=== PATIENT | female | born 1980 | race Caucasian/White ===

== ENCOUNTER 2020-03-31 19:03 | Inpatient (IN) | payer OTHER, SELFPAY ==
[2020-03-31] VITALS (8 sets, daily range): BP systolic 134–156; BP diastolic 82–99; PULSE 20–134; RESP 18–24; TEMP 37.1–38.4; O2SAT 95–99; BMI 51.5
--- NOTE | 2020-03-31 19:31 | US_ITS ---
WS: [id number] ABDOMINAL ULTRASOUND LIMITED REASON FOR VISIT: upper abdominal pain TECHNIQUE: Grayscale and Doppler ultrasound examination of the abdomen. FINDINGS: Pancreas: Poorly visualized Abdominal aorta and IVC: Normal Liver: Liver measures 12.3 cm in length. Infiltration of the liver is seen. Paraspinal pedal circulat ion normal Gallbladder: Gallbladder wall thickness measures 0.2 mm. No stones. Common bile duct measures 0.74 cm . Right kidney: Right kidney measures 11.7 cm x 5.8 cm x 5.7 cm. No hydronephrosis no stones. US/US gall bladder [id number] IMPRESSION: Fatty infiltration of the liver.
--- NOTE | 2020-03-31 19:32 | XR_ITS ---
WS: [id number] XR chest 1V portable [id number] REASON FOR EXAM: chest pain FINDINGS: The cardiac silhouette is not enlarged. The lung hall are well aerated. No pneumonia, pleural effusion, pulmonary edema, are pneumothorax. The overall appearance the chest is unchanged since March 20, 2019. Hilum and apices are normal. No osseous abnormalities. XR/XR chest 1V portable [id number] IMPRESSION: Negative chest for active pathology.
--- NOTE | 2020-03-31 19:33 | ED_ITS ---
HPI - Abdominal Pain General: Chief Complaint: Fever Stated Complaint: fever, yellow stool Time Seen by Provider: 03/31/20 19:17 Source: patient Mode of arrival: ambulatory Limitations: no limitations History of Present Illness: HPI narrative: Patient is a very nice 40-year-old female with a history of non-Hodgkin's lymphoma (in remission over the past 9 years) here for complaints of generalized weakness/not feeling well, upper abdominal pain/chest pain, fevers, vomiting and diarrhea. She states she began feeling ill yesterday. Patient tells me she has had only a few episodes of nonbloody vomit. She has had approximately 6-7 yellow diarrhea stools. She reports pain mainly to her upper abdomen with radiation into her back and flanks. She states when she lies down she feels like pain that radiates up into her chest. She does not complain of any difficulty breathing or shortness of breath. She has no previous cardiac or pulmonary history. No lower extremity swelling, orthopnea, PND. Patient reports fevers as high as 101 at home. She has not noticed any yellowing to her skin or eyes. She did report some urinary urgency, hesitancy, and dysuria a few days ago but states none over the past 1-2 days. Other PMH significant for hypothyroidism and HTN. Pertinent past history: none Onset (ago): day(s) Pain Consistency: constant Radiation: back Migration to: no migration Exacerbating factors: nothing Relieving factors: nothing Associated Symptoms: Reports change in stool character, chills, diarrhea, fever(s), nausea and vomiting; Denies coffee ground emesis, dysuria, heartburn, hematochezia, hematemesis, fecal incontinence, melena and syncope Review of Systems General: Reports: 10 or more systems reviewed and unremarkable except in HPI and below Const: Reports: fever(s) and chills; Denies: body aches, change in appetite, change in weight, fatigue or malaise Eyes: Denies: change in vision or blurry vision ENMT: Denies: throat pain, enlarged tonsils or odynophagia Card: Reports: chest pain; Denies: palpitations, irregular heart rhythm, edema, swelling of feet/ankles, lightheadedness, syncope, pre-syncope, dyspnea on exertion, orthopnea, leg pain with exertion or acrocyanosis Resp: Denies: dyspnea, productive cough, non-productive cough, pain on in spiration, change in phlegm color, hemoptysis or chest congestion GI: Reports: abdominal pain, nausea, vomiting, diarrhea, change in stool character and white/light colored stool (yellow); Denies: hematemesis, coffee ground emesis, heartburn, fecal incontinence, pain on defecation, hematochezia, melena or steatorrhea : Denies: flank pain, difficulty voiding, dysuria, urinary frequency, urinary urgency or urinary hesitancy Musc: Denies: neck pain, back pain, extremity pain, extremity swelling or joint pain Skin/Breast: Denies: rash Neuro: Denies: headache(s), numbness in extremities, weakness in extremities, sensory changes or dizziness PFSH ED PFSH: Social History Smoking and tobacco status: never smoked Physical Exam Const: COMMON NORMALS: patient oriented x3, no limitations and alert NUTRITIONAL APPEARANCE: obese morbidly obese ORIENTATION/CONSCIOUSNESS: Yes oriented to person, Yes oriented to place and Yes oriented to time OTHER: looks like she doesn't feel well HENMT: COMMON NORMALS: normocephalic and atraumatic HEAD & SCALP: normal to inspection, normocephalic and atraumatic Eye: COMMON NORMALS: Equal, round and reactive pupils present, EOMs intact bilaterally, conjunctivae normal and no scleral icterus CONJUNCTIVA: Yes conjunctivae normal PUPIL: Yes Equal, round and reactive pupils present Neck/C-Spine: COMMON NORMALS: full ROM, no lymphadenopathy and no meningeal signs Chest: COMMONS NORMALS: normal inspection of the chest OTHER: mild tenderness with anterior palpation of chest Resp: COMMON NORMALS: normal respiratory effort and clear to auscultation bilaterally AUSCULTATION: clear to auscultation bilaterally Cardio: COMMON NORMALS: regular rhythm RATE: tachycardic RHYTHM: regular rhythm GI: COMMON NORMALS: Soft to palpation and no masses INSPECTION: Yes normal to inspection PALPATION: Yes Soft to palpation and Yes Tenderness to palpation present (GI) (throughout upper abdomen; suprapubic) OTHER: exam somewhat limited due to body habitus Back/Pelvis: COMMON NORMALS: no thoracic nor lumbar tenderness OTHER: mild tenderness just inferior to CVA bilaterally Extremity: COMMON NORMALS: normal to inspection, no clubbing, cyanosis or edema, no calf tenderness and no pedal edema Neuro: CARMITA COMA SCALE: document GCS findings Carmita coma scale eye opening: Spontaneous [place] coma scale verbal response: Orientated [place] coma scale motor response: Obey commands [place] coma scale total score: 15 COMMON NORMALS: patient oriented x3, moves all extremities, no focal motor deficits and no sensory deficits noted SENSORIUM/ORIENTATION: Yes alert, Yes oriented to person, Yes oriented to place and Yes oriented to time MENINGEAL SIGNS: Yes no meningeal signs Skin: COMMON NORMALS: no rashes or lesions noted GENERAL SKIN EXAM: no rashes or lesions noted Course Consultations: Consultation #1: Dr. Torres?will admit patient Vital Signs: Vital signs: Vital Signs Temperature 98.9 F 03/31/20 23:19 Pulse Rate 20 L 03/31/20 23:19 Respiratory Rate 20 H 03/31/20 23:19 Blood Pressure 134/82 03/31/20 23:19 Pulse Oximetry 98 03/31/20 23:19 MDM - Abdominal Pain MDM Narrative: Medical decision making narrative: Patient came in with a main complaint of upper abdominal pain with radiation into her back and chest. She did complain of some yellow stools. Patient was worked up for upper abdominal pains/chest pains including CBC, CMP, lipase, coags, EKG, CXR, trop. Her LFTs are normal. Normal lipase. EKG showing sinus tachycardia. Troponin negative. CXR is normal. Her gallbladder ultrasound is normal. On CT scan she does have findings to suggest bilateral upper urinary tract infections. Patient's UA confirms this infection with 3+ blood, positive nitrates 2+ leuks, 80-100 WBCs. She arrived to the ED tachycardic in the 130s and febrile at 101.2. She has very mild leukocytosis at 12.6. She will need to come into the hospital for IV antibiotics. She has been started on Rocephin here in the emergency department. I will speak to the hospitalist for admission. Lab Data: Labs: Lab Results 03/31/20 03/31/20 03/31/20 Range/Units 19:44 19:44 19:44 WBC 12.6 H (4.0-10.0) 10^3/ uL RBC 5.02 (4.1-5.3) 10^6/u L Hgb 13.3 (11.5-15.3) g/dL Hct 40.6 (37.0-47.0) % MCV 80.9 L (81-99) fL MCH 26.5 L (28.0-34.0) pg MCHC 32.8 (30.0-36.0) g/dL RDW 13.5 (12.1-15.1) % Plt Count 316 (130-400) 10^3/c mm MPV 9.4 (7.4-10.4) fL Neut % (Auto) 80.5 % Lymph % (Auto) 12.0 % Saline % (Auto) 5.4 % Eos % (Auto) 1.2 % Baso % (Auto) 0.4 % Neut # (Auto) 10.2 H (1.8-7.7) 10^3/u L Lymph # (Auto) 1.5 (0.8-4.8) 10^3/u L Saline # (Auto) 0.7 (0.2-0.9) 10^3/u L Eos # (Auto) 0.2 (0.0-0.8) 10^3/u L Baso # (Auto) 0.1 (0.0-0.1) 10^3/u L Nucleated RBC % (a uto) 0 % Nucleated RBCs # 0.0 /100WBC PT (10.5-13.3) SECO NDS INR (0.8-1.2) APTT (23.9-36.7) SECO NDS Sodium 137 (136-145) mmol/L Potassium 3.5 (3.5-5.1) mmol/L Chloride 98 (98-107) mmol/L Carbon Dioxide 22 (22-29) mmol/L Anion Gap 20.5 H (5-19) BUN 9 (6-20) mg/dL Creatinine 1.0 H (0.5-0.9) mg/dL GFR Calculation 61.7 L (90-130) mL/min Glucose 122 H (65-115) mg/dL Calculated Osmolal ity 281 L (285-295) mOsm/k g Lactate (0.5-2.2) mmol/L Calcium 9.7 (8.5-10.5) mg/dL Total Bilirubin 0.8 (0.15-1.2) mg/dL AST 25 (0-32) U/L ALT 17 (0-33) U/L Alkaline Phosphata se 70 (35-105) IU/L Troponin T Gen 5 n g/L (0-10) ng/L Total Protein 7.5 (6.6-8.7) g/dL Albumin 4.4 (3.5-5.2) g/dL Globulin 3.1 (1.3-4.6) g/dL Lipase 31 (13-60) U/L TSH 1.77 (0.27-4.20) uIU/ mL HCG, Qual Negative (Negative) Urine Color (Yellow) Urine Appearance (CLEAR) Urine pH (5-7) Ur Specific Gravit y (1.005-1.030) Urine Protein (Negative) Urine Glucose (UA) (Normal) Urine Ketones (Negative) Urine Blood (Negative) Urine Nitrate (Negative) Urine Bilirubin (NEGATIVE) Urine Urobilinogen (Negative) mg/dL Ur Leukocyte Ophelia ase (Negative) Urine RBC (0-2) /hpf Urine WBC (0-5) /hpf Ur Squamous Epith Cells (0-5) Urine Bacteria (NONE) Urine Opiates Scre en (Negative) ng/mL Ur Barbiturates Sc reen (Negative) ng/mL Ur Phencyclidine S crn (Negative) ng/mL Ur Amphetamines Sc reen (Negative) ng/mL U Benzodiazepines Scrn (Negative) ng/mL Urine Cocaine Scre en (Negative) ng/mL U Marijuana (THC) Screen (Negative) ng/mL 03/31/20 03/31/20 03/31/20 Range/Units 19:44 19:44 19:44 WBC (4.0-10.0) 10^3/ uL RBC (4.1-5.3) 10^6/u L Hgb (11.5-15.3) g/dL Hct (37.0-47.0) % MCV (81-99) fL MCH (28.0-34.0) pg MCHC (30.0-36.0) g/dL RDW (12.1-15.1) % Plt Count (130-400) 10^3/c mm MPV (7.4-10.4) fL Neut % (Auto) % Lymph % (Auto) % Saline % (Auto) % Eos % (Auto) % Baso % (Auto) % Neut # (Auto) (1.8-7.7) 10^3/u L Lymph # (Auto) (0.8-4.8) 10^3/u L Saline # (Auto) (0.2-0.9) 10^3/u L Eos # (Auto) (0.0-0.8) 10^3/u L Baso # (Auto) (0.0-0.1) 10^3/u L Nucleated RBC % (a uto) % Nucleated RBCs # /100WBC PT 13.40 H (10.5-13.3) SECO NDS INR 0.99 (0.8-1.2) APTT 27.8 (23.9-36.7) SECO NDS Sodium (136-145) mmol/L Potassium (3.5-5.1) mmol/L Chloride (98-107) mmol/L Carbon Dioxide (22-29) mmol/L Anion Gap (5-19) BUN (6-20) mg/dL Creatinine (0.5-0.9) mg/dL GFR Calculation (90-130) mL/min Glucose (65-115) mg/dL Calculated Osmolal ity (285-295) mOsm/k g Lactate 1.9 (0.5-2.2) mmol/L Calcium (8.5-10.5) mg/dL Total Bilirubin (0.15-1.2) mg/dL AST (0-32) U/L ALT (0-33) U/L Alkaline Phosphata se (35-105) IU/L Troponin T Gen 5 n g/L 6 (0-10) ng/L Total Protein (6.6-8.7) g/dL Albumin (3.5-5.2) g/dL Globulin (1.3-4.6) g/dL Lipase (13-60) U/L TSH (0.27-4.20) uIU/ mL HCG, Qual (Negative) Urine Color (Yellow) Urine Appearance (CLEAR) Urine pH (5-7) Ur Specific Gravit y (1.005-1.030) Urine Protein (Negative) Urine Glucose (UA) (Normal) Urine Ketones (Negative) Urine Blood (Negative) Urine Nitrate (Negative) Urine Bilirubin (NEGATIVE) Urine Urobilinogen (Negative) mg/dL Ur Leukocyte Ophelia ase (Negative) Urine RBC (0-2) /hpf Urine WBC (0-5) /hpf Ur Squamous Epith Cells (0-5) Urine Bacteria (NONE) Urine Opiates Scre en (Negative) ng/mL Ur Barbiturates Sc reen (Negative) ng/mL Ur Phencyclidine S crn (Negative) ng/mL Ur Amphetamines Sc reen (Negative) ng/mL U Benzodiazepines Scrn (Negative) ng/mL Urine Cocaine Scre en (Negative) ng/mL U Marijuana (THC) Screen (Negative) ng/mL 03/31/20 03/31/20 Range/Units 21:53 21:53 WBC (4.0-10.0) 10^3/ uL RBC (4.1-5.3) 10^6/u L Hgb (11.5-15.3) g/dL Hct (37.0-47.0) % MCV (81-99) fL MCH (28.0-34.0) pg MCHC (30.0-36.0) g/dL RDW (12.1-15.1) % Plt Count (130-400) 10^3/c mm MPV (7.4-10.4) fL Neut % (Auto) % Lymph % (Auto) % Saline % (Auto) % Eos % (Auto) % Baso % (Auto) % Neut # (Auto) (1.8-7.7) 10^3/u L Lymph # (Auto) (0.8-4.8) 10^3/u L Saline # (Auto) (0.2-0.9) 10^3/u L Eos # (Auto) (0.0-0.8) 10^3/u L Baso # (Auto) (0.0-0.1) 10^3/u L Nucleated RBC % (a uto) % Nucleated RBCs # /100WBC PT (10.5-13.3) SECO NDS INR (0.8-1.2) APTT (23.9-36.7) SECO NDS Sodium (136-145) mmol/L Potassium (3.5-5.1) mmol/L Chloride (98-107) mmol/L Carbon Dioxide (22-29) mmol/L Anion Gap (5-19) BUN (6-20) mg/dL Creatinine (0.5-0.9) mg/dL GFR Calculation (90-130) mL/min Glucose (65-115) mg/dL Calculated Osmolal ity (285-295) mOsm/k g Lactate (0.5-2.2) mmol/L Calcium (8.5-10.5) mg/dL Total Bilirubin (0.15-1.2) mg/dL AST (0-32) U/L ALT (0-33) U/L Alkaline Phosphata se (35-105) IU/L Troponin T Gen 5 n g/L (0-10) ng/L Total Protein (6.6-8.7) g/dL Albumin (3.5-5.2) g/dL Globulin (1.3-4.6) g/dL Lipase (13-60) U/L TSH (0.27-4.20) uIU/ mL HCG, Qual (Negative) Urine Color Yellow (Yellow) Urine Appearance Cloudy (CLEAR) Urine pH 5 (5-7) Ur Specific Gravit y 1.005 (1.005-1.030) Urine Protein 1+ H (Negative) Urine Glucose (UA) Norm (Normal) Urine Ketones Negative (Negative) Urine Blood 3+ H (Negative) Urine Nitrate Positive H (Negative) Urine Bilirubin Neg (NEGATIVE) Urine Urobilinogen Norm (Negative) mg/dL Ur Leukocyte Ophelia ase 2+ H (Negative) Urine RBC 25-40 H (0-2) /hpf Urine WBC 80-100 H (0-5) /hpf Ur Squamous Epith Cells 10-15 H (0-5) Urine Bacteria 1+ H (NONE) Urine Opiates Scre en Positive H (Negative) ng/mL Ur Barbiturates Sc reen Negative (Negative) ng/mL Ur Phencyclidine S crn Negative (Negative) ng/mL Ur Amphetamines Sc reen Negative (Negative) ng/mL U Benzodiazepines Scrn Negative (Negative) ng/mL Urine Cocaine Scre en Negative (Negative) ng/mL U Marijuana (THC) Screen Negative (Negative) ng/mL Imaging Data ^: CT Abd/Pel: Radiologist's impression: [address] [address] [address] Scan Report Signed Patient: Ginny Harrison Unit #: [id number] : 1980 Age/Sex: 40 / F ADM Date: 03/31/20 Loc: ER Room/Bed: Attending Dr: Ordering Provider/Ordering MD: Crystal Aguilera Date of Service: 03/31/20 Procedure(s): CT abdomen pelvis w con* [id number] Accession Number(s): [id number] Report Number: [id number] PROCEDURE INFORMATION: Exam: CT Abdomen And Pelvis With Contrast Exam date and time: 03/31/2020 7:53 PM Age: 40 years old Clinical indication: Nausea and vomiting; Abdominal pain; Localized; Right upper quadrant (ruq); Prior surgery; Surgery type: Tubal, port, ; Additional info: Upper abdominal pain, diarrhea, vomiting TECHNIQUE: Imaging protocol: Computed tomography of the abdomen and pelvis with intravenous contrast. Radiation optimization: All CT scans at this facility use at least one of these dose optimization techniques: automated exposure control; mA and/or kV adjustment per patient size (includes targeted exams where dose is matched to clinical indication); or iterative reconstruction. Contrast material: OMNI 300; Contrast volume: 95 ml; Contrast route: INTRAVENOUS (IV); COMPARISON: No relevant prior studies available. RADIATION DOSE METRICS: Total DLP (mGy-cm): 2232.96 FINDINGS: Lungs: The lung bases are clear. Mediastinal space: There is a small amount of retained food or a polyp in the distal esophagus. See image 11 of series 2. Liver: The liver is diffusely fatty and slightly enlarged. Incidental focal fatty sparing adjacent to the gallbladder. Gallbladder and bile ducts: No visible gallstones or wall thickening. No dilatation of the biliary tree. Pancreas: Normal. No ductal dilation. Spleen: This spleen is more enlarged up to 15 cm and enhances normally. Adrenals: Normal. No mass. Kidneys and ureters: There is increased enhancement in the urothelium bilaterally, greater on the right. No stones or obstruction. . No hydronephrosis. Stomach and bowel: Unremarkable. No obstruction. No mucosal thickening. Appendix: The appendix is normal. Intraperitoneal space: See Reproductive finding. Vasculature: Unremarkable. No abdominal aortic aneurysm. Lymph nodes: Mildly enlarged external iliac chain lymph nodes are most likely reactive. Bladder: The urinary bladder is normal. Reproductive: Dominant follicles are noted in both ovaries. No free fluid. Bones/joints: Unremarkable. No acute fracture. Soft tissues: Unremarkable. The CT/CT abdomen pelvis w con* [id number] IMPRESSION: 1. Findings suggesting bilateral upper urinary tract infections, greater on the right. No obstruction, stone or abscess. 2. Hepatic steatosis and hepatomegaly. Also mild splenomegaly 3. Normal appendix. 4. Probable retained food, less likely a polyp in the distal esophagus Radiation Dose CTDIVOL = (mGy): DLP = 2232.96 (mGy-cm) Dictated By: Dany Plata MD Signed By: Dany Plata MD Signed Date/Time: 03/31/202035 DD/ 35 US gallbladder: My impression: Per Krishan Patterson telecommunications technician-normal gallbladder study CXR: My impression: NAD-no changes from previous films EKG Data ^: EKG 1: EKG interpretation date: 03/31/20 EKG interpretation time: 20:02 Interpretation: Sinus tachycardia Rate [address] elevation or depression changes noted Reviewed with Dr. Wells Computer generated interpretation reports atrial flutter with RVR however patient has normal P waves for every QRS complex. There is some artifact noted. Discharge Plan Discharge Patient Disposition: Admitted As Inpatient Admit Provider: Rishabh Torres Clinical Impression: Pyelonephritis Condition: Stable Discharge Date/Time: 03/31/20 23:22 Coding Level of Care Code ED Cam Specialist for Chg Fwd Exam Comprehensive
--- NOTE | 2020-03-31 19:33 | ECG_ITS ---
[facility] ED Test Date: 2020-03-31 Pat Name: Ginny Harrison Department: Room: 251 Gender: Female Desulfurizer Machine: BARBARA : 1980 Requested By: Crystal Aguilera Order Number: [id number] Camryn MD: Alo Mcgovern M.D. Measurements Intervals Joffre Rate: 122 P: CA: -1 QRS: -12 QRSD: 85 T: 21 QT: 318 QTc: 455 Interpretive Statements ATRIAL FLUTTER/TACHYCARDIA WITH RAPID VENTRICULAR RESPONSE ANTERIOR MYOCARDIAL INFARCTION [40+ ms Q WAVE AND/OR ST/T ABNORMALITY IN V3/V4], PROBABLY OLD INTERPRETATION BASED ON A DEFAULT AGE OF 40 YEARS Compared to ECG 12/16/2016 01:34:24 Myocardial infarct finding now present Sinus rhythm no longer present Electronically Signed On 04-01-2020 19:27:51 CDT by Alo Mcgovern M.D. [id number]
[2020-03-31] MEDS: sodium chloride 0.9% 1,000 ML 999 ML IV ×2 (19:49→20:57)
[2020-03-31 19:50] LABS: Basophils # 0.1 10^3/uL (0.0-0.1); Basophils % 0.4 %; Eosinophils # 0.2 10^3/uL (0.0-0.8); Eosinophils % 1.2 %; Hematocrit 40.6 % (37.0-47.0); Hemoglobin 13.3 g/dL (11.5-15.3); Lymphocytes # 1.5 10^3/uL (0.8-4.8); Mean Corpuscular HGB Conc 32.8 g/dL (30.0-36.0); Mean Corpuscular Hemoglobin 26.5 pg (28.0-34.0); Mean Corpuscular Volume 80.9 fL (81-99); Mean Platelet Volume 9.4 fL (7.4-10.4); Monocytes # 0.7 10^3/uL (0.2-0.9); Monocytes % 5.4 %; Neutrophils # 10.2 10^3/uL (1.8-7.7); Neutrophils % 80.5 %; Nucleated Red Blood Cells % 0 %; Platelet Count 316 10^3/cmm (130-400); Red Blood Count 5.02 10^6/uL (4.1-5.3); Red Cell Distribution Width 13.5 % (12.1-15.1); White Blood Count 12.6 10^3/uL (4.0-10.0)
[2020-03-31] MEDS: morphine 4 mg/mL SDV 1 mL IVP (19:52)
[2020-03-31] MEDS: ondansetron 2 mg/ML SDV 2 mL 4 MG IVP (19:53)
[2020-03-31 20:05] LABS: Lactate (Lactic Acid level) 1.9 mmol/L (0.5-2.2)
--- NOTE | 2020-03-31 20:06 | PC.NURSE ---
EKG done at 2002 and shown to ER doctor
[2020-03-31 20:15] LABS: Troponin T (5th) Once 6 ng/L (0-10)
[2020-03-31] MEDS: iohexol 300 mg/mL 100 mL Btl IV (20:15)
[2020-03-31 20:22] LABS: Alanine Aminotransferase 17 U/L (0-33); Albumin Level 4.4 g/dL (3.5-5.2); Alkaline Phosphatase 70 IU/L (35-105); Anion Gap 20.5 (5-19); Aspartate Amino Transferase 25 U/L (0-32); Blood Urea Nitrogen 9 mg/dL (6-20); Calcium 9.7 mg/dL (8.5-10.5); Carbon Dioxide 22 mmol/L (22-29); Chloride 98 mmol/L (98-107); Globulin 3.1 g/dL (1.3-4.6); Glomerular Filtration Rate 61.7 mL/min (90-130); Glucose 122 mg/dL (65-115); Lipase 31 U/L (13-60); Osmolality Calculated 281 mOsm/kg (285-295); Potassium 3.5 mmol/L (3.5-5.1); Sodium 137 mmol/L (136-145); Thyroid Stimulating Hormone 1.77 uIU/mL (0.27-4.20); Total Bilirubin 0.8 mg/dL (0.15-1.2); Total Protein 7.5 g/dL (6.6-8.7)
[2020-03-31 20:42] LABS: HCG, Serum Qual Negative (Negative)
[2020-03-31] MEDS: promethazine 25 mg/mL SDV 1 mL IM (20:57)
[2020-03-31 21:05] LABS: INR 0.99 (0.8-1.2); Partial Thromboplastin Time 27.8 SECONDS (23.9-36.7)
[2020-03-31 22:09] LABS: Amphetamines Screen Urine Negative (Negative); Barbiturates Screen Urine Negative (Negative); Benzodiazepines Screen Urine Negative (Negative); Cocaine Screen Urine Negative (Negative); Opiate Screen Urine Positive (Negative); PCP Screen Urine Negative (Negative); THC Screen Urine Negative (Negative)
[2020-03-31 22:16] LABS: Glucose Urine UA Norm (Normal); Ketones Urine Negative (Negative); Protein Urine 1+ (Negative); Specific Gravity, Urine 1.005 (1.005-1.030); Urine Appearance Cloudy (CLEAR); Urine Color Yellow (Yellow); pH Urine 5 (5-7)
[2020-03-31 22:17] LABS: Add Urine Microscopic? YES; Bilirubin Urine Neg (NEGATIVE); Blood Urine 3+ (Negative); Leukocyte Esterase Urine 2+ (Negative); Nitrate Urine Positive (Negative); Urobilinogen Urine Norm (Negative)
[2020-03-31 22:19] LABS: RBC Urine 25-40 /hpf (0-2); WBC Urine 80-100 /hpf (0-5)
[2020-03-31 22:20] LABS: Add Urine Culture? No; Bacteria Urine 1+
[2020-03-31] MEDS: cefTRIAXone 1,000 MG in sodium chloride 0.9% (plus) 50 ML 100 MG IV (23:00)
[2020-04-01] VITALS (9 sets, daily range): BP systolic 117–172; BP diastolic 79–103; PULSE 95–111; RESP 16–20; TEMP 36.9–38.8; O2SAT 95–97
--- NOTE | 2020-04-01 00:26 | P.HP_ITS ---
Providers/Chief Complaint Admitting Physician: Rishabh Torres Primary Care Provider: Pat Kay MD Chief Complaint: fever, yellow stool History of Present Illness Ginny Harrison is a 40 year old female with history of hypothyroidism, history of lymphoma in remission, hypertension, has been feeling like she has had urinary tract infection for about a week, for which she has been trying to stay hydrated, then yesterday took a swim in the pool, and felt very cold sub sequently, having difficulty to warm up. Then after warming up measured her temperature and noted fever up to 102. Has been having some mid-lower back discomfort. In ER noted with urine findings of UTI. She was having some right abdominal tenderness as well, and ultrasound of the gallbladder was assessed which per preliminary report showed no abnormal findings. This was followed by CT abdomen pelvis with findings suggesting bilateral nonobstructive upper urinary tract infection, greater on the right. Incidentally noted hepatic steatosis and hepatomegaly. Incidentally noted probable retained food, less likely polyp in the distal esophagus. With leukocytosis, 12.6, fever to 1.2 in ER, she is admitted for assessment of management of sepsis secondary to complicated urinary tract infection. Review of Systems Const: Reports: fever(s), chills and malaise; Denies: body aches Eyes: Denies: change in vision or eye redness ENMT: Denies: throat pain, oral sores or ear or mastoid pain Card: Denies: chest pain, edema, pre-syncope or dyspnea on exertion Resp: Denies: dyspnea, productive cough, change in phlegm color or hemoptysis GI: Reports: abdominal pain; Denies: nausea, vomiting, diarrhea, constipation, hematochezia or melena : Denies: flank pain, urinary frequency or hematuria Musc: Reports: back pain; Denies: joint swelling or joint redness Skin/Breast: Denies: rash, sores or new lesions Neuro: Denies: headache(s), numbness in extremities, weakness in extremities, dizziness, confusion or seizure-like activity Endo: Denies: polyuria or polydipsia Abdon/Lymph: Denies: easy bleeding or purpura All/Imm: Denies: urticaria, throat swelling or tongue swelling Medications/Allergies Home Medications Medication Instructions Recorded Confirmed Last Taken Type acetaminophen [Tylenol] 325 mg PO QID PRN 03/31/20 03/31/20 03/31/20 History hydrochlorothiazide 25 mg PO DAILY 03/31/20 03/31/20 03/30/20 History levothyroxine [Synthroid] 50 mcg PO DIRECTED 03/31/20 03/31/20 03/31/20 History Allergies Allergy/AdvReac Type Severity Reaction Status Date / Time No Known Allergies Allergy Verified 03/31/20 19:52 PFSH Acute PFSH: Medical History HTN (hypertension) Hypothyroidism Lymphoma Morbid obesity Surgical History History of Hx of tonsillectomy Port-A-Cath in place Implantation and explantation Family History Other Healthy adult Social History Smoking and tobacco status: never smoked Alcohol intake: never Substance/Drug Use: never Household members: spouse Marital status: Current occupational status: unemployed Female Reproductive History: Date of last menstrual period: 02/28/20 Vitals/I&O/Wt Last Vital Signs Temp 98.9 F 03/31/20 23:19 Pulse 20 L 03/31/20 23:19 Resp 20 H 03/31/20 23:19 BP 134/82 03/31/20 23:19 Pulse Ox 98 03/31/20 23:19 Weight last 48 hrs Weight 136.078 kg Physical Exam Const: COMMON NORMALS: no acute distress and patient oriented x3 NUTRITIONAL APPEARANCE: obese HENMT: COMMON NORMALS: oropharynx normal Neck/C-Spine: COMMON NORMALS: no JVD Resp: COMMON NORMALS: normal respiratory effort and clear to auscultation bila terally AUSCULTATION: clear to auscultation bilaterally Cardio: COMMON NORMALS: no JVD, regular rhythm, S1 normal heart sound present, S2 normal heart sound present and No murmurs present (Cardio) RHYTHM: regular rhythm HEART SOUNDS: S1 normal heart sound present and S2 normal heart sound present GI: COMMON NORMALS: Normal to inspection, nondistended, normoactive bowel sounds present and Soft to palpation PALPATION: Yes Soft to palpation and Yes Tenderness to palpation present (GI) Details: other (R mid abdomen) Extremity: COMMON NORMALS: no joint enlargement and no pedal edema Neuro: COMMON NORMALS: patient oriented x3 and moves all extremities Skin: COMMON NORMALS: no rashes or lesions noted GENERAL SKIN EXAM: no rashes or lesions noted Data : 03/31/20 19:44 03/31/20 19:44 Micro: Microbiology 03/31/20 19:41 Blood Culture - Preliminary Blood SPECIMEN COLLECTED 03/31/20 19:44 Blood Culture - Preliminary Blood SPECIMEN COLLECTED A&P Assessment and plan (1) Pyelonephritis: Complicated urinary tract infection with nonobstructing pyelonephritis, supported by urine and CT findings. With sepsis, with leukocytosis 12.6, fever 101.2. Blood cultures collected. No signs of severe sepsis. Continue Rocephin at this time. On review of prior cultures does not appear to have history of resistant infections. Follow-up urine culture. She does have right side abdominal pain, although this may be secondary to the urinary fraction. Please follow-up the results of the gallbladder ultrasound as these are not currently well, although by preliminary study does not appear to have gallbladder issue. Liver parameters are normal. Please follow with serial examinations. Status: Acute (2) Hypothyroidism: Continue levothyroxine Status: Acute (3) HTN (hypertension): Blood pressures currently at goal. Hold HCTZ for now. Monitor pressures. Cardiac diet. Status: Acute (4) Morbid obesity: Would encourage discussion with primary care provider. Status: Acute Attestations Medical Necessity Statement*: Admission of over 2 midnights is continued for assessment and management of sepsis secondary to complicated urinary tract infection. Coding Level of Care Code Acute Refrigeration Engineering Teacher for [facility] Diagnoses Pyelonephritis N12 Hypothyroidism E03.9 HTN (hypertension) I10 Morbid obesity E66.01
[2020-04-01] MEDS: acetaminophen 325 mg Tablet PO ×3 (01:28→20:22)
[2020-04-01] MEDS: heparin 5,000 unit/mL INJ 1 mL 5000 UNIT SUBCUT ×4 (01:28→23:52)
[2020-04-01] MEDS: lactated ringers 1,000 ML 100 ML IV ×2 (01:29→09:03)
[2020-04-01 06:17] LABS: Alanine Aminotransferase 14 U/L (0-33); Albumin Level 3.4 g/dL (3.5-5.2); Alkaline Phosphatase 61 IU/L (35-105); Anion Gap 18.2 (5-19); Aspartate Amino Transferase 19 U/L (0-32); Blood Urea Nitrogen 9 mg/dL (6-20); Calcium 8.6 mg/dL (8.5-10.5); Carbon Dioxide 21 mmol/L (22-29); Chloride 99 mmol/L (98-107); Globulin 3.3 g/dL (1.3-4.6); Glomerular Filtration Rate 69.7 mL/min (90-130); Glucose 166 mg/dL (65-115); Osmolality Calculated 280 mOsm/kg (285-295); Potassium 3.2 mmol/L (3.5-5.1); Sodium 135 mmol/L (136-145); Total Bilirubin 0.9 mg/dL (0.15-1.2); Total Protein 6.7 g/dL (6.6-8.7)
--- NOTE | 2020-04-01 09:26 | PC.CHAP ---
Pastoral Care Encounter/Spiritual Assessment Type of Contact [] Declined soil surveyor visit [] Patient/Family/Request visit [] Outpatient visit [] Follow-up visit [] Physician referral [] Code/Alert [x] Routine visit [] Staff referral [] Actively dying [] Patient sleeping [] Family support [] [] Out of room [] Palliative care [] [] Receiving care in room [] Pre-surgical visit [] Trauma [] Long length of stay [] ICU visit [] Other: Relational/Emotional Strength [] Patient feels connected with others/family/visitors/staff [] Distress [] Loneliness/isolation [] Abandonment Spirituality of Patient [] Person of Flor[place] [] Attends Religious of their [place] [] Believes in Prayer [] Reads Bible or Taoism materials [] There are Spiritual issues to be addressed Mmi Teacher Interventions [x] Prayer [] Active listening [] Non-anxious presence [] Spiritual/emotional support [] Crisis/trauma care [] Spiritual counseling [] Bereavement support [] Provided bereavement packet [] Provided Bible/devotional materials [] Provided toy/stuffed animal, coloring book to patient or family member [] Provided Communion [] Anointing/[place] [] Salvation [x] Completed spiritual assessment [] Other: Impact on Illness or Injury [] Angry [] Fearful [] Anxious [] Often cries [] Exhaustion [] Unable to work [] Unable to attend orthodox [] Unable to walk/stand [] Unable to read [] Unable to drive [] Unable to eat/drink [] Unable to sleep [] Unable to be with family [] Patient intubated [] Other: Summary Patient feeling weak. Wanting to sleep. Time spent with patient 5 min
[2020-04-01] MEDS: amlodipine 5 mg Tablet PO (11:19)
[2020-04-01] MEDS: levothyroxine 50 mcg Tablet PO (11:48)
--- NOTE | 2020-04-01 12:49 | PM.PN ---
Subjective Subjective: Interval history: Admitted overnight. T-max since admission 101.2 at 7:30 PM yesterday. Later this morning 99.4 Fahrenheit. Examination patient states her Pain is better but is more localized to back now. She denies having any vomiting but complains of being nauseous. She states she is able to have food. Denies of having any headache, palpitation, chest pain. Vitals/I&O/Wt Last Vital Signs Temp 99.4 F 04/01/20 11:08 Pulse 103 H 04/01/20 11:08 Resp 16 04/01/20 11:08 BP 172/95 04/01/20 11:09 Pulse Ox 97 04/01/20 11:08 03/31/20 04/01/20 04/01/20 22:59 06:59 14:59 Intake Total 240 / 240 1116.667 / 1116.667 Output Total 400 / 400 Balance 240 / 240 716.667 / 716.667 Weight last 48 hrs Weight 144.832 kg Weight 136.078 kg Physical Exam Narrative: EXAM NARRATIVE: General: No acute distress, AO x3 HEENT: PERRLA, pupils bilaterally equal and reactive Chest: Normal vesicular breath sounds, no added sounds, equal good air entry bilaterally CVS: S1-S2 regular, no murmurs, no tachycardia, no gallops, no rubs Abdomen: Soft, nontender, no organomegaly, bowel sounds present, renal angle tenderness on the right side Neuro: No focal deficits, no facial deformity, AO x3, power 5/5 in all limbs Data : 03/31/20 19:44 04/01/20 05:02 Micro: Microbiology 03/31/20 19:41 Blood Culture - Preliminary Blood SPECIMEN COLLECTED 03/31/20 19:44 Blood Culture - Preliminary Blood SPECIMEN COLLECTED A&P Assessment and plan (1) Pyelonephritis: Status: Acute (2) Hypothyroidism: Status: Acute (3) HTN (hypertension): Status: Acute (4) Morbid obesity: Would encourage discussion with primary care provider. Status: Acute (5) Sepsis: Status: Acute Additional A&P Information Sepsis: Pyelonephritis: Complicated urinary tract infection with nonobstructing pyelonephritis, supported by urine and CT findings. With sepsis, with leukocytosis 12.6, fever 101.2. Continue with ceftriaxone daily for now. We will reassess antibiotics as per the blood culture and urine culture results. As patient is tolerating oral diet well will discontinue IV fluids. Given her age we will also check for chlamydia gonorrhea panel Right abdominal pain: She does have right side abdominal pain, although this may be secondary to the urinary fraction. Blood parameters are normal. Gallbladder ultrasound and CT abdomen pelvis negative for liver pathology. Hypothyroidism: Effective dose appreciated. Continue with home dose of levothyroxine. Hypertension: Patient is on hydrochlorothiazide at home. Will avoid diuretics for now. Start patient on amlodipine 10 mg daily. Continue to monitor blood pressures. Check lipid panel, HbA1c. Full code. Cardiac diet. Heparin for DVT prophylaxis. Attestations Medical Necessity Statement*: Sepsis due to pyelonephritis Time Spent in Patient Care: Greater than 35 minutes Coding Level of Care Code Acute Sap Technical Developer for [facility] Diagnoses Pyelonephritis N12 Hypothyroidism E03.9 HTN (hypertension) I10 Morbid obesity E66.01 Sepsis A41.9
[2020-04-01 13:29] LABS: Procalcitonin 0.61 ng/mL (0-0.5)
[2020-04-01] MEDS: ondansetron 2 mg/ML SDV 2 mL 4 MG IVP (15:15)
[2020-04-01] MEDS: cefTRIAXone 1,000 MG in sodium chloride 0.9% (plus) 50 ML 100 MG IV (22:57)
[2020-04-02 03:38] VITALS: BP 178/83; PULSE 107; TEMP 38; O2SAT 97
[2020-04-02 03:44] VITALS: BP 158/88
[2020-04-02 05:00] LABS: Basophils % 0.3 %; Eosinophils % 0.3 %; Hematocrit 34.2 % (37.0-47.0); Hemoglobin 11.1 g/dL (11.5-15.3); Lymphocytes # 1.7 10^3/uL (0.8-4.8); Lymphocytes % 18.8 %; Mean Corpuscular HGB Conc 32.5 g/dL (30.0-36.0); Mean Corpuscular Hemoglobin 26.4 pg (28.0-34.0); Mean Corpuscular Volume 81.4 fL (81-99); Mean Platelet Volume 9.8 fL (7.4-10.4); Monocytes # 0.7 10^3/uL (0.2-0.9); Monocytes % 7.6 %; Neutrophils # 6.7 10^3/uL (1.8-7.7); Neutrophils % 72.4 %; Nucleated Red Blood Cells % 0 %; Platelet Count 244 10^3/cmm (130-400); Red Cell Distribution Width 13.5 % (12.1-15.1); White Blood Count 9.3 10^3/uL (4.0-10.0)
[2020-04-02] MEDS: acetaminophen 325 mg Tablet 650 MG PO (05:03)
[2020-04-02] MEDS: ondansetron 2 mg/ML SDV 2 mL 4 MG IVP (05:13)
[2020-04-02 05:36] LABS: Alanine Aminotransferase 12 U/L (0-33); Albumin Level 3.7 g/dL (3.5-5.2); Alkaline Phosphatase 60 IU/L (35-105); Anion Gap 18.2 (5-19); Aspartate Amino Transferase 15 U/L (0-32); Blood Urea Nitrogen 9 mg/dL (6-20); Calcium 9.1 mg/dL (8.5-10.5); Carbon Dioxide 21 mmol/L (22-29); Chloride 99 mmol/L (98-107); Globulin 3.2 g/dL (1.3-4.6); Glomerular Filtration Rate 55.3 mL/min (90-130); Glucose 125 mg/dL (65-115); Osmolality Calculated 277 mOsm/kg (285-295); Potassium 3.2 mmol/L (3.5-5.1); Sodium 135 mmol/L (136-145); Total Bilirubin 0.7 mg/dL (0.15-1.2); Total Protein 6.9 g/dL (6.6-8.7)
[2020-04-02 05:38] LABS: Chol HDL Ratio 4.35 mg/dL (0.0-4.40); Cholesterol 113 mg/dL (0-200); HDL Cholesterol 26 mg/dL (60-100); LDL Cholesterol Calculated 61 mg/dL (50-129); Triglycerides 131 mg/dL (0-150); VLDL Cholestrol Calculation 26 mg/dL (0-30)
[2020-04-02 05:40] LABS: Estmated Average Glucose 114; Hemoglobin A1C 5.6 % (4.0-6.0)
[2020-04-02 06:00] VITALS: BMI 54.8
[2020-04-02] MEDS: levothyroxine 50 mcg Tablet PO (07:06)
[2020-04-02 07:16] VITALS: BP 116/72; PULSE 90; RESP 16; TEMP 37; O2SAT 95
[2020-04-02] MEDS: heparin 5,000 unit/mL INJ 1 mL 5000 UNIT SUBCUT ×2 (09:56→17:00)
[2020-04-02] MEDS: amlodipine 10 mg Tablet PO (09:57)
[2020-04-02 11:23] VITALS: BP 121/84; PULSE 92; RESP 16; TEMP 36.7; O2SAT 96
--- NOTE | 2020-04-02 14:10 | P.PN_ITS ---
Subjective Subjective: Interval history: Night. T-max in last 24 hours 100.4 Fahrenheit. Examination patient is complaining of bilateral back pain, more in right than left. She denies of having any vomiting but complains of nausea. Denies of any dysuria. Has had one episode of liquid bowel movement. Vitals/I&O/Wt Last Vital Signs Temp 98.1 F 04/02/20 11:23 Pulse 92 04/02/20 11:23 Resp 16 04/02/20 11:23 BP 121/84 04/02/20 11:23 Pulse Ox 96 04/02/20 11:23 04/01/20 04/02/20 04/02/20 22:59 06:59 14:59 Intake Total 0 / 1596.667 400 / 1996.667 120 / 120 Output Total 300 / 1100 Balance -300 / 496.667 400 / 896.667 120 / 120 Weight last 48 hrs Weight 144.832 kg Weight 144.832 kg Weight 136.078 kg Physical Exam Narrative: EXAM NARRATIVE: General: No acute distress, AO x3 HEENT: PERRLA, pupils bilaterally equal and reactive Chest: Normal vesicular breath sounds, no added sounds, equal good air entry claudia aterally CVS: S1-S2 regular, no murmurs, no tachycardia, no gallops, no rubs Abdomen: Soft, nontender, no organomegaly, bowel sounds present, renal angle tenderness on the right side Neuro: No focal deficits, no facial deformity, AO x3, power 5/5 in all limbs Data : 04/02/20 04:12 04/02/20 04:12 Micro: Microbiology 04/01/20 15:15 Chlamydia trachomatis ([facility]) - Final Urine Random Neisseria gonorrhoeae ([facility]) - Final 03/31/20 21:53 Urine Culture - Preliminary Urine Catheterized Gram Negative Rods 04/02/20 05:35 Blood Culture - Preliminary Blood SPECIMEN COLLECTED 04/02/20 05:30 Blood Culture - Preliminary Blood SPECIMEN COLLECTED 03/31/20 19:41 Blood Culture - Preliminary Blood NEGATIVE TO DATE 03/31/20 19:44 Blood Culture - Preliminary Blood NEGATIVE TO DATE A&P Assessment and plan (1) Pyelonephritis: Status: Acute (2) Hypothyroidism: Status: Acute (3) HTN (hypertension): Status: Acute (4) Morbid obesity: Would encourage discussion with primary care provider. Status: Acute (5) Sepsis: Status: Acute Additional A&P Information Sepsis: Pyelonephritis: Complicated urinary tract infection with nonobstructing pyelonephritis, supported by urine and CT findings. With sepsis, with leukocytosis 12.6, fever 101.2. Continue with ceftriaxone daily for now. Urine culture growing gram-negative rods. Blood cultures have remained negative. Chlamydia gonorrhea negative. Patient's creatinine mildly elevated today. Will encourage oral intake. Because patient's pain has been persistent we will repeat CT abdomen pelvis. [place] for pain every 6 hours as needed. Patient complaining of mild diarrhea. Will stool studies for C. difficile. Right abdominal pain: She does have right side abdominal pain, although this may be secondary to the urinary fraction. Blood parameters are normal. Gallbladder ultrasound and CT abdomen pelvis negative for liver pathology. Hypothyroidism: Effective dose appreciated. Continue with home dose of levothyroxine. Hypertension: Patient is on hydrochlorothiazide at home. Will avoid diuretics for now. Start patient on amlodipine 10 mg daily. Continue to monitor blood pressures. Full code. Cardiac diet. Heparin for DVT prophylaxis. Attestations Medical Necessity Statement*: Pyelonephritis Time Spent in Patient Care: 16 - 35 minutes Coding Level of Care Code Acute Mineral Wool Insulation Supervisor for [facility] Diagnoses Pyelonephritis N12 Hypothyroidism E03.9 HTN (hypertension) I10 Morbid obesity E66.01 Sepsis A41.9
--- NOTE | 2020-04-02 14:11 | CT_ITS ---
WS: [id number] CT abdomen pelvis wo con [id number] REASON FOR EXAM: pyelo IV CONTRAST ADMINISTERED: None. TOTAL EXAM DLP: 1514.[address] scans at [facility] use at least one of these dose optimization techniques: automat ed exposure control; mA and/or kV adjustment per patient size (includes targeted exams where dose is matched to clinical indication); or iterative reconstruction. FINDINGS: The lower lungs were normal. The liver showed normal appearance no masses were seen. The gallbladder was normal The pancreas head, body, tail were normal The spleen was normal in size and configuration. Both kidneys are of normal size show normal appearance of the collecting system and ureters no absces s formation no abnormalities of gross fascia. The adrenal glands were normal. Bones/joints unremarkable. CT/CT abdomen pelvis wo con [id number] IMPRESSION: No evidence of lung nephritis are cystitis changes. The remaining CT of the abdomen pelvis within normal limits.
[2020-04-02 15:08] VITALS: BP 127/80; PULSE 86; RESP 14; TEMP 36.7; O2SAT 95
[2020-04-02] MEDS: HYDROcodone-acetaminophen 5-325 mg Tablet 1 TAB PO ×2 (16:59→22:22)
[2020-04-02 19:34] VITALS: BP 120/78; PULSE 89; RESP 17; TEMP 36.8; O2SAT 96
[2020-04-02] MEDS: cefTRIAXone 1,000 MG in sodium chloride 0.9% (plus) 50 ML 100 MG IV (22:22)
[2020-04-03] VITALS (8 sets, daily range): BP systolic 112–146; BP diastolic 64–85; PULSE 80–111; RESP 16–25; TEMP 36.8–39.4; O2SAT 95–97
[2020-04-03] MEDS: heparin 5,000 unit/mL INJ 1 mL 5000 UNIT SUBCUT ×3 (00:10→18:30)
[2020-04-03] MEDS: acetaminophen 325 mg Tablet 650 MG PO (04:47)
[2020-04-03] MEDS: levothyroxine 50 mcg Tablet PO (04:49)
[2020-04-03 05:05] LABS: Basophils % 0.3 %; Eosinophils % 0.4 %; Hematocrit 33.5 % (37.0-47.0); Hemoglobin 10.8 g/dL (11.5-15.3); Lymphocytes # 0.8 10^3/uL (0.8-4.8); Lymphocytes % 11.9 %; Mean Corpuscular HGB Conc 32.2 g/dL (30.0-36.0); Mean Corpuscular Hemoglobin 27.1 pg (28.0-34.0); Mean Platelet Volume 9.8 fL (7.4-10.4); Monocytes # 0.4 10^3/uL (0.2-0.9); Monocytes % 5.8 %; Neutrophils # 5.7 10^3/uL (1.8-7.7); Nucleated Red Blood Cells % 0 %; Platelet Count 219 10^3/cmm (130-400); Red Blood Count 3.99 10^6/uL (4.1-5.3); Red Cell Distribution Width 13.6 % (12.1-15.1); White Blood Count 7.1 10^3/uL (4.0-10.0)
[2020-04-03 05:24] LABS: Alanine Aminotransferase 10 U/L (0-33); Albumin Level 3.6 g/dL (3.5-5.2); Alkaline Phosphatase 56 IU/L (35-105); Anion Gap 17.3 (5-19); Aspartate Amino Transferase 13 U/L (0-32); Blood Urea Nitrogen 10 mg/dL (6-20); Calcium 8.8 mg/dL (8.5-10.5); Carbon Dioxide 22 mmol/L (22-29); Chloride 97 mmol/L (98-107); Globulin 2.9 g/dL (1.3-4.6); Glomerular Filtration Rate 69.7 mL/min (90-130); Glucose 119 mg/dL (65-115); Osmolality Calculated 273 mOsm/kg (285-295); Potassium 3.3 mmol/L (3.5-5.1); Sodium 133 mmol/L (136-145); Total Bilirubin 0.5 mg/dL (0.15-1.2); Total Protein 6.5 g/dL (6.6-8.7)
--- NOTE | 2020-04-03 06:33 | PC.NURSE ---
Shift Summary Pt slept well tonight with one c/o pain in back. pain relieved with oral medication. temperature gradually increased to 103.0 F, relieved with oral Tylenol pt had good urinary output and tolerated meds well.
[2020-04-03] MEDS: amlodipine 10 mg Tablet PO (08:26)
[2020-04-03] MEDS: HYDROcodone-acetaminophen 5-325 mg Tablet 1 TAB PO (10:48)
--- NOTE | 2020-04-03 13:14 | CT_ITS ---
WS: [id number] CT facial bones wo con* [id number] REASON FOR EXAM: r/o abscess, osteo IV CONTRAST ADMINISTERED none TOTAL EXAM DLP: 774.[address] scans at [facility] use at least one of these dose optimization techniques: automat ed exposure control; mA and/or kV adjustment per patient size (includes targeted exams where dose is matched to clinical indication); or iterative reconstruction. FINDINGS: This study shows normal appearance of the paranasal sinuses. The maxilla show no destructive changes or fractures. The zygoma zygomatic arches are normal. The mastoid air cells show no abnormalities. Soft tissue of the face shows no definite destructive changes or mass effect are hyper intensities to suggest abscess formation. The mandible appears to be intact not destroyed no fractures the teeth appear to be normal. The nasal bone was normal. CT/CT facial bones wo con* [id number] IMPRESSION: Normal appearance of the facial bones with no evidence of abscess formation or osteomyelitis.
--- NOTE | 2020-04-03 13:14 | CT_ITS ---
WS: [id number] CT neck wo con [id number] REASON FOR EXAM: h/o radiation IV CONTRAST ADMINISTERED: None. TOTAL EXAM DLP: 717.[address] scans at [facility] use at least one of these dose optimization techniques: automat ed exposure control; mA and/or kV adjustment per patient size (includes targeted exams where dose is matched to clinical indication); or iterative reconstruction. FINDINGS: This study shows lymphadenopathy along the anterior chain of the lymph nodes. In the area of the lateral facial area there is lymphadenopathy the largest node measured 8.42 cm and larger nodes are seen right and left side bilaterally on the left side the largest node measures 1.0 1 cm. And the largest node on the right measured 1.89 mm. The submaxillary glands and parotid glands show normal appearance there is no tumors seen in either g land. The tongue appear to be normal. The parapharyngeal space and the nasopharyngeal spaces were normal. The carotid and jugular spaces were normal. The previously spinal space showed no definite masses. The supraglottic area did not show any mass defect. Infraglottic area was normal in the larynx show no lesions. The thyroid was normal. There is marked lymphadenopathy along the anterior chain starting at the upper chest through the late ral and superior neck. CT/CT neck wo con [id number] IMPRESSION: Multiple anterior chain lymphadenopathy is noted the largest node measured 1.89 cm on the right side we cannot totally rule out lymphoma.
--- NOTE | 2020-04-03 13:18 | PM.PN ---
Subjective Subjective: Interval history: Overnight patient spiked a fever again. 103. Patient was brought into [facility]. She denies of having any nausea, vomiting. States her back pain is little better. She is also complaining of pain in her lower jaw. She states she saw her dentist last month and was advised to have 5 of her teeth removed but have not gotten to it yet. She was also prescribed antibiotics at that time. She has not had any diarrhea in last 24 hours as well Vitals/I&O/Wt Last Vital Signs Temp 99.1 F 04/03/20 11:24 Pulse 94 04/03/20 11:24 Resp 16 04/03/20 11:24 BP 127/79 04/03/20 11:24 Pulse Ox 96 04/03/20 11:24 04/02/20 04/03/20 04/03/20 22:59 06:59 14:59 Intake Total 120 / 240 900 / 1140 100 / 100 Output Total 500 / 500 100 / 100 Balance 120 / 240 400 / 640 0 / 0 Weight last 48 hrs Weight 146.17 kg Weight 144.832 kg Physical Exam Narrative: EXAM NARRATIVE: General: No acute distress, AO x3 HEENT: PERRLA, pupils bilaterally equal and reactive Chest: Normal vesicular breath sounds, no added sounds, equal good air entry bilaterally CVS: S1-S2 regular, no murmurs, no tachycardia, no gallops, no rubs Abdomen: Soft, nontender, no organomegaly, bowel sounds present, renal angle tenderness on the right side Neuro: No focal deficits, no facial deformity, AO x3, power 5/5 in all limbs Data : 04/03/20 04:13 04/03/20 04:13 Micro: Microbiology 03/31/20 21:53 Urine Culture - Final Urine Catheterized Escherichia coli 04/02/20 05:35 Blood Culture - Preliminary Blood NEGATIVE TO DATE 04/02/20 05:30 Blood Culture - Preliminary Blood NEGATIVE TO DATE 04/03/20 04:54 Blood Culture - Preliminary Blood SPECIMEN COLLECTED 04/03/20 04:51 Blood Culture - Preliminary Blood SPECIMEN COLLECTED 04/01/20 15:15 Chlamydia trachomatis ([facility]) - Final Urine Random Neisseria gonorrhoeae ([facility]) - Final A&P Assessment and plan (1) Pyelonephritis: Status: Acute (2) Hypothyroidism: Status: Acute (3) HTN (hypertension): Status: Acute (4) Morbid obesity: Would encourage discussion with primary care provider. Status: Acute (5) Sepsis: Status: Acute Additional A&P Information Sepsis: Pyelonephritis: Complicated urinary tract infection with nonobstructing pyelonephritis, supported by urine and CT findings. With sepsis, with leukocytosis 12.6, fever 101.2. Urine cultures growing pansensitive E. coli. Blood cultures have remained negative. Chlamydia/gonorrhea negative. Given pansensitive E. coli we will change patient back to ceftriaxone and continue the same. Patient would most likely need treatment for 10 days. Given her body weight will give her 2 g daily. Patient is also complaining of pain in her jaw. Because of history of radiation to neck a little worried about osteonecrosis/osteomyelitis of the jaw given persistent fever. We will check CT facial bones, CT soft tissue and CT chest to rule out any other source of infections. Appreciated results of CT abdomen pelvis done. Hypothyroidism: Effective dose appreciated. Continue with home dose of levothyroxine. Hypertension: Blood pressures better. Continue with amlodipine 10 mg daily. Full code. Cardiac diet. Heparin for DVT prophylaxis. Patient's mother Ms. Henning has been updated regarding her condition and all the questions have been answered. Attestations Medical Necessity Statement*: Sepsis, pyelonephritis Time Spent in Patient Care: Greater than 35 minutes Coding Level of Care Code Acute Computer Game Programmer for [facility] Fwd Diagnoses Pyelonephritis N12 Hypothyroidism E03.9 HTN (hypertension) I10 Morbid obesity E66.01 Sepsis A41.9
[2020-04-03] MEDS: potassium chloride ER 10 mEq Tablet 40 MEQ PO (13:28)
--- NOTE | 2020-04-03 14:03 | CT_ITS ---
WS: [id number] CT chest wo con [id number] REASON FOR EXAM: fever IV CONTRAST ADMINISTERED none TOTAL EXAM DLP: 851.[address] scans at [facility] use at least one of these dose optimization techniques: automat ed exposure control; mA and/or kV adjustment per patient size (includes targeted exams where dose is matched to clinical indication); or iterative reconstruction. FINDINGS: The thyroid was normal. There is lymphadenopathy along the anterior mediastinum seen. The aorta was normal. Scattered small nodes in the mediastinum are seen. Aortic 1 dictated did not show any mass effects. Both hilar areas were normal with no masses or lymph nodes seen. The liver appear to be normal lymphadenopathy is seen in the para-aortic area. Perfusion scan show normal perfusion throughout both lung hall. No definite masses are seen. CT/CT chest wo con [id number] IMPRESSION: Lymphadenopathy along the clavicular areas bilaterally. There is para-aortic lymphadenopathy at the thoracolumbar junction. The peripheral lungs did not show any definite masses or pneumonias.
--- NOTE | 2020-04-03 17:02 | PC.NURSE ---
This RN called and spoke with the patient's mother and performed a brief follow up call. She states she spoke with Lloyd Foy LPN and Dr. Thornton earlier and that she feels she is well updated on her daughter's current condition. This RN encouraged her to call if she has any further questions or concerns. She verbalizes understanding.
[2020-04-04] MEDS: heparin 5,000 unit/mL INJ 1 mL 5000 UNIT SUBCUT ×2 (00:18→08:08)
[2020-04-04 04:00] VITALS: BP 157/80; PULSE 94; RESP 20; TEMP 37.3; O2SAT 97
[2020-04-04 05:09] LABS: Basophils % 0.3 %; Eosinophils # 0.1 10^3/uL (0.0-0.8); Eosinophils % 1.4 %; Hematocrit 34.1 % (37.0-47.0); Hemoglobin 10.8 g/dL (11.5-15.3); Lymphocytes # 1.1 10^3/uL (0.8-4.8); Mean Corpuscular HGB Conc 31.7 g/dL (30.0-36.0); Mean Corpuscular Hemoglobin 26.9 pg (28.0-34.0); Mean Corpuscular Volume 84.8 fL (81-99); Mean Platelet Volume 9.9 fL (7.4-10.4); Monocytes # 0.4 10^3/uL (0.2-0.9); Monocytes % 7.3 %; Neutrophils # 4.1 10^3/uL (1.8-7.7); Neutrophils % 71.3 %; Nucleated Red Blood Cells % 0 %; Platelet Count 235 10^3/cmm (130-400); Red Blood Count 4.02 10^6/uL (4.1-5.3); Red Cell Distribution Width 13.7 % (12.1-15.1); White Blood Count 5.8 10^3/uL (4.0-10.0)
[2020-04-04] MEDS: levothyroxine 50 mcg Tablet 75 MCG PO (06:07)
--- NOTE | 2020-04-04 06:32 | PC.NURSE ---
Shift Summary pt has had no c/o pain tonight, only heartburn which resolved on own. pt has had good urinary output and slept well.
[2020-04-04 07:22] VITALS: BP 126/80; PULSE 94; RESP 18; TEMP 37.1; O2SAT 97
[2020-04-04] MEDS: cefTRIAXone 2,000 MG in sodium chloride 0.9% (plus) 50 ML 100 MG IV (08:08)
[2020-04-04] MEDS: amlodipine 10 mg Tablet PO (08:08)
--- NOTE | 2020-04-04 10:07 | P.DS_ITS ---
Discharge Providers Date of Admission: 03/31/20 22:42 Date of Discharge: April 04, 2020 Attending Provider at Admission: Rishabh Torres Attending Provider at Discharge: Mehdi Thornton MD Primary Care Provider: Pat Kay MD Diagnoses at Discharge Discharge Diagnosis (1) Pyelonephritis: Status: Acute (2) Hypothyroidism: Status: Acute (3) HTN (hypertension): Status: Acute (4) Morbid obesity: Status: Acute (5) Sepsis: Status: Acute Reason for Visit Reason for Visit: fever, yellow stool Hospital Course Discharge Summary: Ginny Harrison is a 40 year old female with history of hypothyroidism, history of lymphoma in remission, hypertension, has been feeling like she has had urinary tract infection for about a week, for which she has been trying to stay hydrated, then yesterday took a swim in the pool, and felt very cold subsequently, having difficulty to warm up. Then after warming up measured her temperature and noted fever up to 102. Has been having some mid- lower back discomfort. In ER noted with urine findings of UTI. She was having some right abdominal tenderness as well, and ultrasound of the gallbladder was assessed which per preliminary report showed no abnormal findings. This was followed by CT abdomen pelvis with findings suggesting bilateral nonobstructive upper urinary tract infection, greater on the right. Incidentally noted hepatic steatosis and hepatomegaly. Incidentally noted probable retained food, less likely polyp in the distal esophagus. With leukocytosis, 12.6, fever to 1.2 in ER, she is admitted for assessment of management of sepsis secondary to complicated urinary tract infection. She was admitted for pyelonephritis. She was started on ceftriaxone. Her hospital stay was complicated by back pain and intermittent high-grade spiking fevers. For which repeat CT abdomen was done which was negative for any acute pathology and was showing resolution of infection. She was complaining of pain in her jaw with history of radiation 9 years ago for lymphoma there was a concern for osteonecrosis/osteomyelitis of CT face, CT soft tissue neck was done which was negative for any abscess or destruction of bone but showed multiple lymphadenopathy. Patient is advised to follow-up with her oncologist at [facility] for a possible excisional biopsy of the lymph nodes. She is also advised to take levofloxacin for 7 more days to finish a course of antibiotics apparent nephritis. Her blood cultures remain negative and urine culture was sent in for pansensitive E. coli. She is been discharged hemodynamically good condition advised to follow-up with her primary care provider and oncologist. Physical Exam Narrative: EXAM NARRATIVE: General: No acute distress, AO x3 HEENT: PERRLA, pupils bilaterally equal and reactive Chest: Normal vesicular breath sounds, no added sounds, equal good air entry bilaterally CVS: S1-S2 regular, no murmurs, no tachycardia, no gallops, no rubs Abdomen: Soft, nontender, no organomegaly, bowel sounds present, renal angle tenderness on the right side Neuro: No focal deficits, no facial deformity, AO x3, power 5/5 in all limbs Discharge Data Data Completed and Pending: Completed Studies During Hospitalization Category Date Time Status CT abdomen pelvis w con* [id number] Urge nt Cat Scan 03/31/20 19:[address] abdomen pelvis wo con [id number] Rout ine Cat Scan 04/02/20 14:[address] chest wo con 7 [id number] Routine Cat Scan 04/03/20 14:[address] facial bones w o con* [id number] Routi ne Cat Scan 04/03/20 13:[address] neck wo con [id number] Routine Cat Scan 04/03/20 13:14 Completed XR chest 1V katt ble [id number] Urgent Exams 03/31/20 19:32 Completed US gall bladder 7 [id number] Urgent Ultrasound 03/31/20 19:31 Completed Pending at discharge Category Date Time Status Blood Culture Sta t Lab 03/31/20 19:41 Results Blood Culture Sta t Lab 04/02/20 05:35 Results Blood Culture Sta t Lab 04/03/20 04:54 Results Clostridioides Di fficile PCR Routin e Lab 04/02/20 14:12 Ordered Enteric Bacterial Panel by PCR Rout ine Lab 04/02/20 14:12 Ordered Enteric Parasite Panel by PCR Routi ne Lab 04/02/20 14:12 Ordered Immunochemical Fe tomas OCB Routine Lab 04/02/20 14:12 Ordered LAB Peripheral Sm ear Routine Lab 04/04/20 04:00 Ordered Lactoferrin Routi ne Lab 04/02/20 14:12 Ordered Labs from last 24 hours 04/04/20 02:47 WBC 5.8 RBC 4.02 L Hgb 10.8 L Hct 34.1 L MCV 84.8 MCH 26.9 L MCHC 31.7 RDW 13.7 Plt Count 235 MPV 9.9 Neut % (Auto) 71.3 Lymph % (Auto) 19.0 Luce % (Auto) 7.3 Eos % (Auto) 1.4 Baso % (Auto) 0.3 Neut # (Auto) 4.1 Lymph # (Auto) 1.1 Luce # (Auto) 0.4 Eos # (Auto) 0.1 Baso # (Auto) 0.0 Nucleated RBC % (a uto) 0 Nucleated RBCs # 0.0 Addt'l Data from Hospital Stay: CT chest V CONTRAST ADMINISTERED none TOTAL EXAM DLP: 851.[address] scans at [facility] use at least one of these dose opt imization techniques: automated exposure control; mA and/or kV adjustment per patient size (includes targeted exams where dose is matched to clinical indication); or iterative reconstruction. FINDINGS: The thyroid was normal. There is lymphadenopathy along the anterior mediastinum seen. The aorta was normal. Scattered small nodes in the mediastinum are seen. Aortic 1 dictated did not show any mass effects. Both hilar areas were normal with no masses or lymph nodes seen. The liver appear to be normal lymphadenopathy is seen in the para-aortic area. Perfusion scan show normal perfusion throughout both lung hall. No definite masses are seen. CT/CT chest wo con [id number] IMPRESSION: Lymphadenopathy along the clavicular areas bilaterally. There is para-aortic lymphadenopathy at the thoracolumbar junction. The peripheral lungs did not show any definite masses or pneumonias. CT soft tissue neck All CT scans at [facility] use at least one of these dose optimization techniques: automated exposure control; mA and/or kV adjustment per patient size (includes targeted exams where dose is matched to clinical indication); or iterative reconstruction. FINDINGS: This study shows lymphadenopathy along the anterior chain of the lymph nodes. In the area of the lateral facial area there is lymphadenopathy the largest node measured 8.42 cm and larger nodes are seen right and left side bilaterally on the left side the largest node measures 1.01 cm. And the largest node on the right measured 1.89 mm. The submaxillary glands and parotid glands show normal appearance there is no tumors seen in either gland. The tongue appear to be normal. The parapharyngeal space and the nasopharyngeal spaces were normal. The carotid and jugular spaces were normal. The previously spinal space showed no definite masses. The supraglottic area did not show any mass defect. Infraglottic area was normal in the larynx show no lesions. The thyroid was normal. There is marked lymphadenopathy along the anterior chain starting at the upper chest through the lateral and superior neck. CT/CT neck wo con [id number] IMPRESSION: Multiple anterior chain lymphadenopathy is noted the largest node measured 1.89 cm on the right side we cannot totally rule out lymphoma. CT face FINDINGS: This study shows normal appearance of the paranasal sinuses. The maxilla show no destructive changes or fractures. The zygoma zygomatic arches are normal. The mastoid air cells show no abnormalities. Soft tissue of the face shows no definite destructive changes or mass effect are hyper intensities to suggest abscess formation. The mandible appears to be intact not destroyed no fractures the teeth appear to be normal. The nasal bone was normal. CT/CT facial bones wo con* [id number] IMPRESSION: Normal appearance of the facial bones with no evidence of abscess formation or osteomyelitis. CT abdomen pelvis FINDINGS: The lower lungs were normal. The liver showed normal appearance no masses were seen. The gallbladder was normal The pancreas head, body, tail were normal The spleen was normal in size and configuration. Both kidneys are of normal size show normal appearance of the collecting system and ureters no abscess formation no abnormalities of gross fascia. The adrenal glands were normal. Bones/joints unremarkable. CT/CT abdomen pelvis wo con [id number] IMPRESSION: No evidence of lung nephritis are cystitis changes. The remaining CT of the abdomen pelvis within normal limits. Vitals: Last Vital Signs Temp 98.7 F 04/04/20 07:22 Pulse 94 04/04/20 07:22 Resp 18 04/04/20 07:22 BP 126/80 04/04/20 07:22 Pulse Ox 97 04/04/20 07:22 Discharge Plan Discharge Patient Disposition: Home, Self-Care Condition: Stable Prescriptions: New amlodipine 10 mg Tablet 10 mg PO DAILY Qty: 30 RF: 0 levofloxacin 750 mg tablet 750 mg PO DAILY 7 Days Qty: 7 RF: 0 Continued levothyroxine [Synthroid] 50 mcg Tablet 50 mcg PO DIRECTED RF: 0 Tylenol 325 mg Tablet 325 mg PO QID PRN (Reason: Pain) RF: 0 Discontinued hydrochlorothiazide 25 mg Tablet 25 mg PO DAILY RF: 0 Discharge Orders: Discharge Order (Routine); Ordered 04/04/20 Ordered By: Mehdi Thornton Referrals: Pat Kay MD [Primary Care Provider] - 2 weeks Discharge Diet: Cardiac Discharge Activity: Resume usual activity Activity Restrictions/Additional Instructions: Please follow-up with your oncologist at [facility] for lymphoma. You have new lymphadenopathy in the neck which needs to be followed up. He would most likely need an excisional biopsy to rule out recurrence of lymphoma. Please take oral levofloxacin for 7 more days to finish a course of antibiotics for pyonephritis. Hydrochlorothiazide has been stopped and amlodipine 10 mg has been started. Discharge Attestations Time Spent in Discharge Care*: greater than 30 min Specific Discharge Activities: Specific discharge activities: educating patient, educating and/or supporting family/caregiver, discussing with case specialist/social workers/dc planners, documenting/other paperwork and evaluating patient/reviewing data Status at Discharge: Cognitive status at discharge: cognitively intact , Behavioral status at discharge: cooperative , Functional status at discharge: independent ambulation Overall status at discharge: patient is back to baseline Quality Metrics Clinical Quality Measures During this hospital stay, did patient experience: None Coding Level of Care Code Acute Strain Technician for Chg Fwd Diagnoses Pyelonephritis N12 Hypothyroidism E03.9 HTN (hypertension) I10 Morbid obesity E66.01 Sepsis A41.9
[2020-04-04 10:34] VITALS: BP 126/80; PULSE 94; RESP 18; TEMP 37.1; O2SAT 97
--- NOTE | 2020-04-04 12:02 | PC.NURSE ---
DC instructions,given voiced full understanding, iv dc'd ,cath intact bleeding controlled with 2x2 and coban. taken to main entrance via wheelchair with no difficulties
[2020-04-04 12:16] VITALS: BP 126/80; PULSE 94; RESP 18; TEMP 37.1; O2SAT 97
[2020-04-05 00:15] LABS: LAB Peripheral Smear Sent for Review
== END 2020-04-04 12:02 | disposition home or self-care (01) | DRG 872 ==
LOC: ER 22:28 → MEDSURG 23:13
PROVIDERS: Physician Assistant; Admitting Provider Internal Medicine; PCP Family Medicine; Visit Provider Student in an Organized Health Care Education/Training Program
DX: A41.9 Sepsis, unspecified organism (principal); N39.0 Urinary tract infection, site not specified; Z68.43 Body mass index [BMI] 50.0-59.9, adult; N10 Acute pyelonephritis; E03.9 Hypothyroidism, unspecified; Z85.72 Personal history of non-Hodgkin lymphomas; I10 Essential (primary) hypertension; R16.0 Hepatomegaly, not elsewhere classified; E66.01 Morbid (severe) obesity due to excess calories; B96.20 Unspecified Escherichia coli [E. coli] as the cause of diseases classified elsewhere; Z92.3 Personal history of irradiation; R59.0 Localized enlarged lymph nodes
CPT/HCPCS: 12345; 36415; 70486; 70490; 71045; 71250; 74176; 74177; 76705; 80053; 80061; 80306; 80500; 81001; 83036; 83605; 83690; 84145; 84443; 84484; 84703; 85025; 85610; 85730; 87040; 87077; 87086; 87186; 87491; 87591; 93005; 96372; 96375; 99284; A9270; J0131; J0696; J0743; J1644; J2270; J2405; J2550; J7030; J7050; Q9967

== ENCOUNTER 2023-12-08 12:51 | Outpatient (CLI) | payer OTHER, SELFPAY ==
[2023-12-08 13:48] LABS: Basophils % 0.2 %; Hematocrit 43.7 % (36-47); Lymphocytes # 1.4 10^3/uL (0.8-4.8); Lymphocytes % 9.7 %; Mean Corpuscular HGB Conc 35.5 g/dL (30-55); Mean Corpuscular Hemoglobin 31.1 pg (27-33); Mean Corpuscular Volume 87.6 fl (85-98); Mean Platelet Volume 8.9 fL (7.4-10.4); Monocytes # 0.7 10^3/uL (0.2-0.9); Monocytes % 4.8 %; Neutrophils # 12.56 10^3/uL (1.8-7.7); Neutrophils % 84.5 %; Nucleated Red Blood Cells % 0 %; Platelet Count 320 10^3/cmm (157-399); Red Blood Count 4.99 10^6/uL (3.85-5.65); Red Cell Distribution Width 13.2 % (12.1-15.1); White Blood Count 14.86 10^3/uL (3.29-11.43)
[2023-12-08 14:13] LABS: Alanine Aminotransferase 15 U/L (0-33); Albumin Level 4.5 g/dL (3.5-5.2); Alkaline Phosphatase 54 U/L (35-105); Anion Gap 14.1 (5-19); Aspartate Amino Transferase 12 U/L (0-32); Blood Urea Nitrogen 22 mg/dL (6-20); Calcium 9.4 mg/dL (8.5-10.5); Carbon Dioxide 25 mmol/L (22-29); Chloride 103 mmol/L (98-107); Globulin 3.1 g/dL (1.3-4.6); Glomerular Filtration Rate 60.8 mL/min (90-130); Glucose 92 mg/dL (65-115); Osmolality Calculated 289 mOsm/kg (285-295); Potassium 4.1 mmol/L (3.5-5.1); Sodium 138 mmol/L (136-145); Total Bilirubin 0.4 mg/dL (0.15-1.2); Total Protein 7.6 g/dL (6.6-8.7)
[2023-12-08 14:32] LABS: Rapid Plasma Reagin Syphilis Nonreactive (Nonreactive)
[2023-12-11 12:35] LABS: Angiotensin Converting Enzyme 14 U/L (9-67)
[2023-12-11 13:50] LABS: Quantiferon Mitogen 4.58 IU/mL; Quantiferon Nil 0.02 IU/mL; Quantiferon TB Gold NEGATIVE (NEGATIVE)
[2023-12-11 17:00] LABS: HLA-B27 POSITIVE (NEGATIVE)
[2023-12-12 18:50] LABS: Bartonella Henselae IgG AB NEGATIVE; Bartonella Henselae IgM AB NEGATIVE; Bartonella Quintana IgG AB NEGATIVE
== END 2023-12-08 12:52 | disposition home or self-care (01) ==
PROVIDERS: PCP Family Medicine; Visit Provider Family Medicine
DX: C81.90 Hodgkin lymphoma, unspecified, unspecified site (principal); M45.9 Ankylosing spondylitis of unspecified sites in spine; H47.10 Unspecified papilledema
CPT/HCPCS: 36415; 80053; 82164; 85025; 85549; 86480; 86592; 86611; 86812

== ENCOUNTER 2024-09-04 23:01 | Emergency (ER) | payer OTHER, SELFPAY ==
[2024-09-04 23:02] VITALS: BP 144/71; PULSE 107; RESP 24; TEMP 36.9; O2SAT 99; BMI 42.7
[2024-09-04 23:08] VITALS: BP 144/71; PULSE 109; O2SAT 98
[2024-09-04 23:23] LABS: Basophils # 0.1 10^3/uL (0.0-0.1); Basophils % 0.5 %; Eosinophils # 0.3 10^3/uL (0.0-0.8); Eosinophils % 1.3 %; Hematocrit 42.4 % (36-47); Lymphocytes # 2.1 10^3/uL (0.8-4.8); Lymphocytes % 10.1 %; Mean Corpuscular HGB Conc 34.4 g/dL (30-55); Mean Corpuscular Hemoglobin 30.9 pg (27-33); Mean Corpuscular Volume 89.6 fl (85-98); Monocytes % 4.6 %; Neutrophils # 17.52 10^3/uL (1.8-7.7); Neutrophils % 82.9 %; Nucleated Red Blood Cells % 0 %; Platelet Count 322 10^3/cmm (157-399); Red Blood Count 4.73 10^6/uL (3.85-5.65); White Blood Count 21.13 10^3/uL (3.29-11.43)
--- NOTE | 2024-09-04 23:24 | ED_ITS ---
HPI - Abdominal Pain 2 General: Chief Complaint: Abdominal Pain Stated Complaint: ABD Pain /n/v Time Seen by Provider: 09/04/24 23:04 History of Present Illness: Patient presents to the ER by EMS with complaints of epigastric pain. Started about an hour ago. Patient's been having severe nausea vomiting and pain ever since. Patient received approximately 4 mg morphine and 12.5 mg promethazine en route by EMS. Patient states she had gastric bypass approximately 2 years ago has not had any problems until recently. Patient had a recent EGD she said that something was abnormal but she does not know what. Patient denies any diarrhea constipation coughs colds fevers chills. Related Data Home Medications Medication Instructions Recorded Confirmed acetaminophen 325 mg tablet 325 mg PO QID PRN Pain 03/31/20 03/31/20 (Tylenol) levothyroxine 50 mcg tablet 50 mcg PO DIRECTED 03/31/20 03/31/20 (Synthroid) Previous Rx's Medication Instructions Recorded amlodipine 10 mg tablet 10 mg PO DAILY #30 tabs 04/04/20 ciprofloxacin HCl 500 mg tablet 500 mg PO Q12H #20 tabs 09/05/24 ondansetron HCl 4 mg tablet 4 mg PO Q8H PRN nausea and 09/05/24 vomiting #14 tabs Allergies Allergy/AdvReac Type Severity Reaction Status Date / Time No Known Allergies Allergy Verified 09/04/24 23:08 Review of Systems 2 General: Reports: 10 or more systems reviewed and unremarkable except in HPI and below PFSH ED 2 PFSH: Medical History (Updated 09/05/24 @ 01:32 by Umberto Gaviria DO) Lymphoma Morbid obesity HTN (hypertension) Hypothyroidism Surgical History Hx of tonsillectomy History of Port-A-Cath in place Implantation and explantation Family History Other Healthy adult Social History Smoking and tobacco/nicotine status: never used tobacco/nicotine Alcohol intake: never Substance/Drug Use: never Household members: spouse Marital status: Current occupational status: unemployed Physical Exam 2 Const: COMMON NORMALS: no acute distress, average body habitus, patient oriented x3, no limitations, healthy appearing, alert and well nourished HENMT: COMMON NORMALS: normocephalic, atraumatic, hearing grossly normal bilaterally, external ears normal, Normal external nose present and moist oral mucous membranes HEAD & SCALP: normocephalic and atraumatic NOSE: Normal external nose present EXTERNAL EAR: Yes external ears normal Neck/C-Spine: COMMON NORMALS: no JVD Chest: COMMONS NORMALS: normal inspection of the chest and normal palpation of entire chest wall Resp: COMMON NORMALS: normal respiratory effort, No retractions, No use of accessory muscles and clear to auscultation bilaterally AUSCULTATION: clear to auscultation bilaterally Cardio: COMMON NORMALS: no JVD, regular rate, regular rhythm, S1 normal heart sound present, S2 normal heart sound present, No gallops present (Cardio), No clicks present (Cardio), No murmurs present (Cardio) and No rub (Cardio) R ATE: regular rate RHYTHM: regular rhythm HEART SOUNDS: S1 normal heart sound present and S2 normal heart sound present GI: COMMON NORMALS: Normal to inspection, nondistended, normoactive bowel sounds present, Soft to palpation, No hepatosplenomegaly present and no masses; negative for non-tender (Tender to palpate over epigastric area) PALPATION: Y es Soft to palpation and Yes No hepatosplenomegaly present Neuro: COMMON NORMALS: patient oriented x3 SENSORIUM/ORIENTATION: Yes alert Course 2 Vital Signs: Vital signs: Vital Signs Temperature 98.4 F 09/04/24 23:02 Pulse Rate 91 09/05/24 01:00 Respiratory Rate 21 H 09/05/24 00:30 Blood Pressure 150/93 09/05/24 01:00 Pulse Oximetry 97 09/05/24 01:00 Oxygen Delivery Me thod Room Air 09/05/24 01:00 MDM - Abdominal Pain Medical Decision Making Blood cell count 21.13 thought to be just from demargination of the blood vessel due to stress of vomiting. Otherwise lab work unremarkable except for trace leukocyte esterase and 11-20 white blood cells however this also had 21-50 squamous cells so this was a contaminated specimen. Patient will be sent home with nausea medicine and antibiotic just to be safe. Abdomen pelvis CT was essentially negative except for fluid in the colon. Medical Records I reviewed the patient's medical records. Lab Data I reviewed the patient's lab results. 09/04/24 23:15 09/04/24 23:15 Labs/Radiology: Radiology Impressions Abdomen/Pelvis CT 09/05/24 00:19 IMPRESSION: Fluid within the colon which could be seen in the setting of diarrheal illness. No significant inflammatory bowel changes. No bowel obstruction. Laboratory Results WBC 21.13 10^3/uL (3.29-11.43) H 09/04/24 23:15 RBC 4.73 10^6/uL (3.85-5.65) 09/04/24 23:15 Hgb 14.60 g/dL (11.27-16.99) 09/04/24 23:15 Hct 42.4 % (36-47) 09/04/24 23:15 MCV 89.6 fl (85-98) 09/04/24 23:15 MCH 30.9 pg (27-33) 09/04/24 23:15 MCHC 34.4 g/dL (30-55) 09/04/24 23:15 RDW 13.0 % (12.1-15.1) 09/04/24 23:15 Plt Count 322 10^3/cmm (157-399) 09/04/24 23:15 MPV 9.0 fL (7.4-10.4) 09/04/24 23:15 Neut % (Auto) 82.9 % 09/04/24 23:15 Lymph % (Auto) 10.1 % 09/04/24 23:15 Antelope % (Auto) 4.6 % 09/04/24 23:15 Eos % (Auto) 1.3 % 09/04/24 23:15 Baso % (Auto) 0.5 % 09/04/24 23:15 Neut # (Auto) 17.52 10^3/uL (1.8-7.7) H 09/04/24 23:15 Lymph # (Auto) 2.1 10^3/uL (0.8-4.8) 09/04/24 23:15 Antelope # (Auto) 1.0 10^3/uL (0.2-0.9) H 09/04/24 23:15 Eos # (Auto) 0.3 10^3/uL (0.0-0.8) 09/04/24 23:15 Baso # (Auto) 0.1 10^3/uL (0.0-0.1) 09/04/24 23:15 Nucleated RBC % (auto) 0 % 09/04/24 23:15 Nucleated RBCs # 0.0 /100WBC 09/04/24 23:15 Sodium 138 mmol/L (136-145) 09/04/24 23:15 Potassium 3.9 mmol/L (3.5-5.1) 09/04/24 23:15 Chloride 103 mmol/L (98-107) 09/04/24 23:15 Carbon Dioxide 21 mmol/L (22-29) L 09/04/24 23:15 Anion Gap 17.9 (5-19) 09/04/24 23:15 BUN 20 mg/dL (6-20) 09/04/24 23:15 Creatinine 1.0 mg/dL (0.5-0.9) H 09/04/24 23:15 GFR Calculation 60.5 mL/min (90-130) L 09/04/24 23:15 Glucose 122 mg/dL (65-115) H 09/04/24 23:15 Calculated Osmolality 290 mOsm/kg (285-295) 09/04/24 23:15 Lactic Acid 1.0 mmol/L (0.5-2.2) 09/04/24 23:15 Calcium 9.4 mg/dL (8.5-10.5) 09/04/24 23:15 Magnesium 2.1 mg/dL (1.7-2.3) 09/04/24 23:15 Total Bilirubin 0.6 mg/dL (0.15-1.2) 09/04/24 23:15 AST 23 U/L (0-32) 09/04/24 23:15 ALT 24 U/L (0-33) 09/04/24 23:15 Alkaline Phosphatase 68 U/L (35-105) 09/04/24 23:15 Total Protein 7.4 g/dL (6.6-8.7) 09/04/24 23:15 Albumin 4.4 g/dL (3.5-5.2) 09/04/24 23:15 Globulin 3.0 g/dL (1.3-4.6) 09/04/24 23:15 Lipase 48 U/L (13-60) 09/04/24 23:15 Procalcitonin 0.07 ng/mL (0-0.5) 09/04/24 23:15 Urine Color Yellow (Yellow) 09/05/24 00:15 Urine Appearance Clear (CLEAR) 09/05/24 00:15 Urine pH 5.0 (5-7) 09/05/24 00:15 Ur Specific [place] 1.021 (1.005-1.030) 09/05/24 00:15 Urine Protein Negative (Negative) 09/05/24 00:15 Urine Glucose (UA) Negative (Normal) 09/05/24 00:15 Urine Ketones Trace (Negative) 09/05/24 00:15 Urine Blood Negative (Negative) 09/05/24 00:15 Urine Nitrate Negative (Negative) 09/05/24 00:15 Urine Bilirubin Negative (Negative) 09/05/24 00:15 Urine Urobilinogen 1.0 mg/dL (Negative) 09/05/24 00:15 Ur Leukocyte Esterase 1+ (Negative) A 09/05/24 00:15 Urine RBC 0-2 /hpf (0-2) 09/05/24 00:15 Urine WBC 11-20 /hpf (0-5) H 09/05/24 00:15 Ur Squamous Epith Cells 21-50 /hpf (0-5) 09/05/24 00:15 Amorphous Sediment Not Reportable 09/05/24 00:15 Urine Bacteria 1+ /hpf (NONE) H 09/05/24 00:15 Hyaline Casts 0-4 /lpf H 09/05/24 00:15 All radiology interpretation(s) finalized by discharge Discharge Plan Discharge Patient Disposition: Home Clinical Impression: Gastroenteritis Urinary tract infection Qualifiers: Urinary tract infection type: acute cystitis Hematuria presence: without hematuria Qualified Code(s): N30.00 - Acute cystitis without hematuria Condition: Stable Prescriptions: New ondansetron HCl 4 mg tablet 4 mg PO Q8H PRN (Reason: nausea and vomiting) Qty: 14 0RF ciprofloxacin HCl 500 mg tablet 500 mg PO Q12H Qty: 20 0RF No Action levothyroxine [Synthroid] 50 mcg Tablet 50 mcg PO DIRECTED Tylenol 325 mg Tablet 325 mg PO QID PRN (Reason: Pain) amlodipine 10 mg Tablet 10 mg PO DAILY Qty: 30 0RF Discharge Orders: Discharge ED (Routine); Ordered 09/05/24 Ordered By: Umberto Gaviria Referrals: Pat Kay MD [Primary Care Provider] - 1 week Patient Instructions: Acute Nausea and Vomiting (ED), Urinary Tract Infection - Women Activity Restrictions/Additional Instructions: Thank you for choosing [facility] for your healthcare needs today. Please realize that you were seen in the emergency department and that we are providing you with an emergency medical screening exam and this may not be a complete and all exclusive of all testing and/or medical workup we may need to determine your element or severity of your illness. It is very important that you follow-up as instructed with your primary care provider or specialist for the additional evaluation and to discuss your medical treatment plan. You may return to the emergency department should you have concerns or if your condition changes or worsens in any way. Coding Level of Care Code ED Registered Medical Assistant for Lizet Rodas
[2024-09-04] MEDS: morphine 4 mg/mL SDV 1 mL IVP (23:25)
[2024-09-04] MEDS: ondansetron 2 mg/ML SDV 2 mL 8 MG IVP (23:25)
[2024-09-04] MEDS: sodium chloride 0.9% 1,000 ML 999 ML IV (23:25)
[2024-09-04 23:38] VITALS: BP 145/84; PULSE 89; RESP 22; O2SAT 99
[2024-09-05 00:05] LABS: Alanine Aminotransferase 24 U/L (0-33); Albumin Level 4.4 g/dL (3.5-5.2); Alkaline Phosphatase 68 U/L (35-105); Aspartate Amino Transferase 23 U/L (0-32); Blood Urea Nitrogen 20 mg/dL (6-20); Calcium 9.4 mg/dL (8.5-10.5); Chloride 103 mmol/L (98-107); Lipase 48 U/L (13-60); Magnesium 2.1 mg/dL (1.7-2.3); Osmolality Calculated 290 mOsm/kg (285-295); Sodium 138 mmol/L (136-145); Total Bilirubin 0.6 mg/dL (0.15-1.2); Total Protein 7.4 g/dL (6.6-8.7)
[2024-09-05 00:08] VITALS: BP 151/92; PULSE 96; RESP 18; O2SAT 100
[2024-09-05 00:11] LABS: Potassium 3.9 mmol/L (3.5-5.1)
[2024-09-05 00:12] LABS: Anion Gap 17.9 (5-19); Carbon Dioxide 21 mmol/L (22-29); Glomerular Filtration Rate 60.5 mL/min (90-130); Glucose 122 mg/dL (65-115); Procalcitonin 0.07 ng/mL (0-0.5)
--- NOTE | 2024-09-05 00:19 | CTR_ITS ---
PROCEDURE INFORMATION: Exam: CT Abdomen And Pelvis With Contrast Exam date and time: 09/05/2024 12:34 AM Age: 44 years old Clinical indication: Abdominal pain; Epigastric; Prior surgery; Surgery date: 6+ months; Surgery type: Csection, gastric bypass 2 years ago; Additional info: Severe douglas pain, nausea history of gastric bypass TECHNIQUE: Imaging protocol: Computed tomography of the abdomen and pelvis with contrast. Radiation optimization: All CT scans at this facility use at least one of these dose optimization techniques: automated exposure control; mA and/or kV adjustment per patient size (includes targeted exams where dose is matched to clinical indication); or iterative reconstruction. Contrast material: OMNI 350; Contrast volume: 100 ml; Contrast route: INTRAVENOUS (IV); COMPARISON: CT abdomen pelvis wo con [id number] 04/02/2020 3:43 PM RADIATION DOSE METRICS: Total DLP (mGy-cm): 1043.2 FINDINGS: Liver: Unremarkable. No mass. Gallbladder and biliary ducts: Unremarkable. No calcified stones. No ductal dilation. Pancreas: Unremarkable. No ductal dilation. Spleen: Unremarkable. No mass. Adrenal glands: Unremarkable. No mass. Kidneys and ureters: Unremarkable. No stone or hydronephrosis. Stomach and bowel: Anastomotic suture at the stomach. Fluid within the colon. No bowel wall thickening. No bowel obstruction. Appendix: No evidence of appendicitis. Intraperitoneal space: No free air. No significant fluid collection. Vasculature: No abdominal aortic aneurysm. Lymph nodes: No enlarged lymph nodes. Urinary bladder: Unremarkable as visualized. Reproductive: No suspicious adnexal findings. Intrauterine device. Bones/joints: No acute fracture. No suspicious lesion. Soft tissues: No bowel containing hernia. CT/CT abdomen pelvis w con* [id number] IMPRESSION: Fluid within the colon which could be seen in the setting of diarrheal illness. No significant inflammatory bowel changes. No bowel obstruction.
[2024-09-05 00:30] VITALS: BP 142/79; PULSE 97; RESP 21; O2SAT 99
[2024-09-05] MEDS: iohexol 350 mg/mL 500 mL Btl (per mL) IV (00:37)
[2024-09-05 00:41] LABS: Bilirubin Urine Negative (Negative); Blood Urine Negative (Negative); Glucose Urine UA Negative (Normal); Ketones Urine Trace (Negative); Leukocyte Esterase Urine 1+ (Negative); Nitrate Urine Negative (Negative); Protein Urine Negative (Negative); Specific Gravity, Urine 1.021 (1.005-1.030); Urine Appearance Clear (CLEAR); Urine Color Yellow (Yellow)
[2024-09-05 00:46] LABS: Add Urine Microscopic? YES; Bacteria Urine 1+ /hpf; Hyaline Casts Urine 0-4 /lpf; RBC Urine 0-2 /hpf (0-2); Squamous Epithelial Cell Urine 21-50 /hpf (0-5)
[2024-09-05 01:00] VITALS: BP 150/93; PULSE 91; O2SAT 97
[2024-09-05 01:30] VITALS: BP 131/71; PULSE 97; RESP 18; O2SAT 99
[2024-09-05 01:46] VITALS: BP 131/71; PULSE 96; O2SAT 96
== END 2024-09-05 01:40 | disposition home or self-care (01) ==
PROVIDERS: Emergency Provider Emergency Medicine; PCP Family Medicine
DX: K52.9 Noninfective gastroenteritis and colitis, unspecified (principal); N30.00 Acute cystitis without hematuria; I10 Essential (primary) hypertension
CPT/HCPCS: 36415; 74177; 80053; 81001; 83605; 83690; 83735; 84145; 85025; 96374; 96375; 99285; J2270; J2405; J7030